=== PATIENT | female | born 1990 | race American Indian/Alaskan Native ===

== ENCOUNTER 2018-08-13 08:59 | Emergency (ER) | payer MEDICAID ==
--- NOTE | 2018-08-13 10:44 | Emergency Department Report ---
HPI - General Chief Complaint: Upper Respiratory Infection Time Seen by Provider: 08/13/18 10:39 - HPI HPI: 28-year-old -[place] female presents to ED with scalp itching, or rash in front of scalp, for the past 6 months, worse this past week. Patient has not been taking any medication at home for symptoms, she has been using T gel, without relief. She is also complaining of upper respiratory like symptoms, cough, runny nose, but no fever chills or night sweats. She denies being around anybody else with similar symptoms. Regarding her scalp itchiness, she denies seeing any live mites, but has moved to a new apartment, since symptoms get worse. States she does have a history of psoriasis. ED Past Medical Hx - Medications Home Medications: Home Medications Medication Instructions Recorded Confirmed Last Taken Type Permethrin 5% [Acticin 5% CREAM] 1 applicatio TP ONCE #1 tube 08/13/18 Unknown Rx Selenium Sulfide [Selsun Blue] 5 ml TP DAILY PRN #1 bottle 08/13/18 Unknown Rx predniSONE [Prednisone] 5 mg PO BID 5 Days #10 tablet 08/13/18 Unknown Rx ED Review of Systems ROS: Stated complaint: GENERAL SICKNESS Other details as noted in HPI Comment: All other systems reviewed and negative Endocrine: denies: flushing, intolerance to cold Gastrointestinal: denies: abdominal pain Genitourinary: denies: urgency Skin: rash, change in hair/nails, pruritus Physical Exam - Physical Exam Vital Signs: Vital Signs 08/13/18 09:09 Temperature 97.6 F Pulse Rate 91 H Respiratory 18 Rate Blood Pressure 129/87 [Right] O2 Sat by Pulse 100 Oximetry Physical Exam: Vital signs reviewed - General Limitations: No Limitations General appearance: alert, in no apparent distress. - Head Head exam: Present: atraumatic, normocephalic - Eye Eye exam: Present: normal appearance - ENT ENT exam: Present: mucous membranes moist - Neck Neck exam: Present: normal inspection - Respiratory Respiratory exam: Present: normal lung sounds bilaterally. Absent: respiratory distress - Cardiovascular Cardiovascular Exam: Present: normal rhythm. Absent: systolic murmur, diastolic murmur, rubs, gallop - GI/Abdominal GI/Abdominal exam: Present: soft, normal bowel sounds - Extremities Exam Extremities exam: Present: normal inspection - Back Exam Back exam: Present: normal inspection - Neurological Exam Neurological exam: Present: alert, oriented X3 - Psychiatric Psychiatric exam: normal affect and mood - Skin Skin exam: Present: warm, dry, intact, normal color. Pruritic scalp rash, frontal scalp rash. ED Course Vital Signs 08/13/18 09:09 Temperature 97.6 F Pulse Rate 91 H Respiratory 18 Rate Blood Pressure 129/87 [Right] O2 Sat by Pulse 100 Oximetry Critical care attestation.: If time is entered above; I have spent that time in minutes in the direct care of this critically ill patient, excluding procedure time. ED Disposition Clinical Impression: Tinea capitis, Viral URI Disposition: - TO HOME OR SELFCARE Is pt being admited?: No Does the pt Need Aspirin: No Condition: Stable Prescriptions: Permethrin 5% [Acticin 5% CREAM] 1 applicatio TP ONCE #1 tube predniSONE [Prednisone] 5 mg PO BID 5 Days #10 tablet Selenium Sulfide [Selsun Blue] 5 ml TP DAILY PRN #1 bottle PRN Reason: Itching Referrals: JARAD RICHARDSON MD [Primary Care Provider] - 3-5 Days
[2018-08-14 18:37] VITALS: BP 126/84
== END 2018-08-13 10:54 | disposition home or self-care (01) ==
LOC: ED 08:59
DX: B35.0 Tinea barbae and tinea capitis (principal); J06.9 Acute upper respiratory infection, unspecified
CPT/HCPCS: 99282